=== PATIENT | female | born 1995 ===

== ENCOUNTER 2021-11-02 06:31 | Day surgery (SDC) | payer OTHER | END 2021-11-02 12:40 | disposition home or self-care (01) | LOC: CIR.AMB 06:31 | PROVIDERS: ATTEND Obstetrics & Gynecology Maternal & Fetal Medicine | DX: O02.1 Missed abortion (principal); Z20.822 Contact with and (suspected) exposure to COVID-19 ==

== ENCOUNTER 2023-10-10 07:46 | Inpatient (IN) | payer OTHER ==
[2023-10-09 16:53] LABS: HEMATOCRIT 38.5 % (36.0-45.00); HEMOGLOBIN 13.2 g/dL (12.0-15.00); MEAN CELL VOLUME 87.6 fL (80.00-100.00); MEAN CORPUSCULAR HEMOGLOBIN 29.9 pg (27.00-32.0); MEAN CORPUSCULAR HGB CONC 34.1 g/dl (32.0-36.0); PLATELET COUNT 197 K/uL (150-450); RED CELL DISTRIBUTION WIDTH 14.2 % (11.5-14.5)
[2023-10-09 17:20] LABS: ALBUMIN 2.8 gm/dL (3.4-5.0); BILIRUBIN TOTAL 0.36 mg/dL (0.3-1.2); CALCIUM 9.5 mg/dL (8.5-10.1); CREATININE SERUM 0.69 mg/dL (0.55-1.02); GFR 102.84; GLOBULINA 3.2 G/DL (2.4-3.5); POTASSIUM 3.79 mEq/L (3.5-5.1)
[2023-10-09 17:35] LABS: INR < 0.93; PARTIAL THROMBOPLASTIN TIME 26.3 SECONDS (22.0-34.0); PROTHROMBIN TIME 9.7 SECONDS (9.0-11.5)
[~2023-10-10] VITALS: Ht 154.9 cm; Wt 69.4 kg
[2023-10-10] MEDS ORDERED: PRENATAL + DHA1 EAC1 PO (07:59)
[2023-10-10] MEDS ORDERED: ERYTHROMYCIN BASE 1 GM TUBE OP ONE (10:10)
[2023-10-10] MEDS ORDERED: CEFAZOLIN SODIUM 1,000 MG VIAL ONE (10:10)
[2023-10-10] MEDS ORDERED: OXYTOCIN 10 UNITS/ML VIAL ONE (10:10)
[2023-10-10] MEDS ORDERED: CITRIC ACID/SODIUM CITRATE 30 ML BLIST.PACK PO ONE (10:11)
[2023-10-10] MEDS ORDERED: KETOROLAC TROMETHAMINE 30 MG VIAL IV SCH (12:23)
[2023-10-10] MEDS ORDERED: RINGERS SOLUTION,LACTATED 1,000 ML IV SCH (12:30)
[2023-10-10] MEDS ORDERED: OXYTOCIN 1,000 ML IV ONE (12:30)
[2023-10-10] MEDS ORDERED: MORPHINE SULFATE 4 MG/ML CARTRIDGE IV PRN (12:30)
[2023-10-10] MEDS ORDERED: KETOROLAC TROMETHAMINE 30 MG VIAL ONE (13:24)
[2023-10-10] MEDS ORDERED: ONDANSETRON HCL 2 MG/ML VIAL IV SCH (14:00)
[2023-10-10] MEDS ORDERED: SIMETHICONE 125 MG CAPSULE PO SCH (17:00)
[2023-10-10] MEDS ORDERED: GABAPENTIN 300 MG CAPSULE PO SCH (17:00)
[2023-10-10] MEDS ORDERED: ACETAMINOPHEN 500 MG GEL..CAP PO SCH (18:00)
[2023-10-11 06:27] LABS: HEMATOCRIT 33.6 % (36.0-45.00); HEMOGLOBIN 11.6 g/dL (12.0-15.00); MEAN CELL VOLUME 88.8 fL (80.00-100.00); MEAN CORPUSCULAR HEMOGLOBIN 30.6 pg (27.00-32.0); MEAN CORPUSCULAR HGB CONC 34.4 g/dl (32.0-36.0); PLATELET COUNT 149 K/uL (150-450); RED BLOOD COUNT 3.78 M/uL (4.00-6.00); RED CELL DISTRIBUTION WIDTH 14.1 % (11.5-14.5)
[2023-10-11] MEDS ORDERED: OxyCODONE HCL 5 MG TABLET (ROXICODONE) PO PRN (08:00)
[2023-10-11] MEDS ORDERED: DOCUSATE SODIUM 100MG CAP PO SCH (09:00)
[2023-10-11] MEDS ORDERED: KETOROLAC TROMETHAMINE 10 MG TABLET PO SCH (12:00)
[2023-10-12] MEDS ORDERED: DOCUSATE SODIUM 100MG CAP PO SCH (19:14)
== END 2023-10-13 14:24 | disposition home or self-care (01) | DRG 788 ==
LOC: OB/GYN 07:46 → O/R 07:46 → OB/GYN 11:00
PROVIDERS: ADMIT Obstetrics & Gynecology; ATTEND Obstetrics & Gynecology
PROC: 4A1HXCZ Monitoring of Products of Conception, Cardiac Rate, External Approach (ICD-10-PCS; 2023-10-10)
PROC: 10D00Z1 Extraction of Products of Conception, Low, Open Approach (ICD-10-PCS; principal; 2023-10-10 11:00)
DX: O32.1XX0 Maternal care for breech presentation, not applicable or unspecified (principal); Z3A.39 39 weeks gestation of pregnancy; Z37.0 Single live birth; Z20.822 Contact with and (suspected) exposure to COVID-19